=== PATIENT | male | born 1960 | race Two or more races ===

== ENCOUNTER 2018-08-15 19:32 | Emergency (ER) | payer MEDICAID ==
[~2018-08-15] VITALS: Ht 170.2 cm; Wt 66.9 kg
[2018-08-15 20:45] VITALS: BP 142/80
--- NOTE | 2018-08-15 20:45 | NUR ---
CONSTANT CHEST PRESSURE SINCE AWAKENING THIS MORNING WITH NO ACCOMPANYING SYMPTOMS. PT ON MONITOR. FAMILY AT BEDSIDE. IV ESTABLISHED WITH BLOOD DRAWN
[2018-08-15 20:46] LABS: BASOPHILS # (AUTO) 0.04 x10^3/uL (0-0.1); BASOPHILS % (AUTO) 1 % (0-1); EOSINOPHILS % (AUTO) 1 % (1-7); LYMPHOCYTES # (AUTO) 1.43 x10^3/uL (1-3.4); LYMPHOCYTES % (AUTO) 18 % (22-44); MD NO; MEAN CORPUSCULAR HEMOGLOBIN 29.8 pg (27.5-34.5); MEAN CORPUSCULAR HGB CONC 32.7 g/dL (33.2-36.2); MEAN PLATELET VOLUME 8.7 fL (7.4-10.4); MONOCYTES # (AUTO) 0.52 x10^3/uL (0.2-0.8); MONOCYTES % (AUTO) 7 % (2-9); NEUTROPHILS # (AUTO) 5.83 x10^3/uL (1.8-6.8); NEUTROPHILS % (AUTO) 74 % (42-75); PLATELET COUNT 261 x10^3/uL (130-400); RED BLOOD COUNT 5.38 x10^6/uL (4.38-5.82); RED CELL DISTRIBUTION WIDTH 14.7 % (9.4-14.8)
[2018-08-15 20:59] LABS: ALBUMIN 3.8 g/dL (3.4-5.0); ANION GAP 7 mmol/L (5-15); CALCIUM 9.5 mg/dL (8.5-10.1); CHLORIDE 106 mmol/L (98-107)
[2018-08-15 21:03] LABS: TROPONIN I < 0.015 ng/mL (0.000-0.045)
== END 2018-08-15 22:07 | disposition home or self-care (01) ==
LOC: ED 21:26
DX: M94.0 Chondrocostal junction syndrome [Tietze] (principal); R07.2 Precordial pain; F17.200 Nicotine dependence, unspecified, uncomplicated
CPT/HCPCS: 36415; 71045; 80048; 82040; 84484; 85025; 85379; 93005; 99284